=== PATIENT | female | born 1990 | race Caucasian/White ===

== ENCOUNTER 2017-03-31 18:50 | Emergency (ER) | payer OTHER ==
[~2017-03-31] VITALS: Ht 172.7 cm; Wt 87.7 kg
[~2017-03-31 18:50] MED LIST: VENTAER INH; ZITH250T PO
[2017-03-31 18:57] VITALS: BP 124/75; PULSE 88; RESP 20; TEMP 98.9; O2SAT 98
[2017-03-31] MEDS ORDERED: MORPHINE SULFATE 8 MG/ML INJ ONE (19:28)
[2017-03-31] MEDS ORDERED: MORPHINE SULFATE 4 MG/ML INJ IV PUSH ONE (19:30)
--- NOTE | 2017-03-31 19:33 | PD ---
HPI Chief Complaint: Fall Time Seen by Provider: 19:26 Travel History International Travel<30 days: No Contact w/Intl Traveler<30days: No Traveled to known affect area: No History of Present Illness HPI 26 year-old female presents to the emergency room for evaluation of right flank pain after falling down half a flight of stairs 1.5 hours prior to arrival. Patient was walking up the stairs with a laundry basket in her hand when she slipped and fell backwards. She struck her right flank on a step and then slid to the bottom of the stairs before striking her head on the tile floor. She denies loss of consciousness but "saw stars." Patient states her right flank pain is the most severe and worse with sitting and touching the area. Feels the best when she is standing. She has mild posterior headache. She has been ambulatory since falling. Took Aleve at home without significant relief in symptoms. Patient is not on blood thinners. Denies nausea, vomiting, upper or lower extremity paresthesias, saddle anesthesia, or loss of bowel or bladder control. [facility] Past Medical History Anxiety: Yes Depression: Yes Diabetes: No Diminished Hearing: No Immunizations Current: Yes ?: Not Menopausal: No : 2 Para: 1 : 1 Past Surgical History Section: Yes (2013) Social History Alcohol Use: No Tobacco Use: No Substance Use: No Allergies-Medications (Allergen,Severity, Reaction): Coded Allergies: Tramadol (Verified Allergy, Severe, Hives, 03/31/17) Reported Meds & Prescriptions Reported Meds & Active Scripts Active No Active Prescriptions or Reported Medications Review of Systems Except as stated in HPI: all other systems reviewed are Neg Physical Exam Narrative GENERAL: Well-developed, well-nourished female in no acute distress. Afebrile. Ambulatory. SKIN: Warm and dry. There is moderate erythema and developing ecchymosis in the right flank. HEAD: Atraumatic. Normocephalic. No kwon sign or raccoon eyes. EYES: PERRL, EOMI, no discharge or injection. No scleral icterus. ENT: Mucosa pink and moist. No erythema or exudates. No uvular edema. No uvular , palatal, or tonsillar deviation. Airway patent. EARS: Bilateral pinnae and external canals appear within normal limits. Bilateral tympanic membranes without erythema, dullness or perforation. No hemotympanum. NECK: Trachea midline. No JVD. No midline tenderness. Full range of motion. CARDIOVASCULAR: Regular rate and rhythm. No murmur appreciated. RESPIRATORY: No accessory muscle use. Clear to auscultation. Breath sounds equal bilaterally. No crackles, rales, wheezes, or rhonchi. BACK: No rash. No point tenderness on palpation of the spine. Extreme right- sided flank tenderness to palpation. NEUROLOGICAL: Awake and alert. Cranial nerves 2 through 12 intact. Motor grossly within normal limits. Normal speech. Strength 5/5 and equal in upper and lower extremities. PSYCHIATRIC: Appropriate mood and affect; insight and judgment normal. Data Data Last Documented VS Vital Signs Date Time Temp Pulse Resp B/P Pulse Ox O2 Delivery O2 Flow Rate FiO2 03/31/17 18:57 98.9 88 20 124/75 98 Orders Complete Blood Count With Diff (03/31/17 19:13) Basic Metabolic Panel (Bmp) (03/31/17 19:13) Ct Abd/Pel W Iv Contrast(Rout) (03/31/17 ) Iv Access Insert/Monitor (03/31/17 19:13) Ct Brain W/O Iv Contrast(Rout) (03/31/17 ) Morphine Inj (Morphine Inj) (03/31/17 19:30) Morphine Inj (Morphine Inj) (03/31/17 19:28) Morphine Inj (Morphine Inj) (03/31/17 20:00) Iohexol 350 Inj (Omnipaque 350 Inj) (03/31/17 20:36) Labs Laboratory Tests Test 03/31/17 19:20 White Blood Count 6.5 TH/MM3 Red Blood Count 4.35 MIL/MM3 Hemoglobin 12.6 GM/DL Hematocrit 37.0 % Mean Corpuscular Volume 85.1 FL Mean Corpuscular Hemoglobin 28.9 PG Mean Corpuscular Hemoglobin 34.0 % Concent Red Cell Distribution Width 11.6 % Platelet Count 296 TH/MM3 Mean Platelet Volume 7.8 FL Neutrophils (%) (Auto) 61.4 % Lymphocytes (%) (Auto) 28.5 % Monocytes (%) (Auto) 7.2 % Eosinophils (%) (Auto) 2.1 % Basophils (%) (Auto) 0.8 % Neutrophils # (Auto) 4.0 TH/MM3 Lymphocytes # (Auto) 1.8 TH/MM3 Monocytes # (Auto) 0.5 TH/MM3 Eosinophils # (Auto) 0.1 TH/MM3 Basophils # (Auto) 0.1 TH/MM3 CBC Comment DIFF FINAL Differential Comment Sodium Level 142 MEQ/L Potassium Level 3.9 MEQ/L Chloride Level 109 MEQ/L Carbon Dioxide Level 23.5 MEQ/L Anion Gap 10 MEQ/L Blood Urea Nitrogen 10 MG/DL Creatinine 0.81 MG/DL Estimat Glomerular Filtration 85 ML/MIN Rate Random Glucose 93 MG/DL Calcium Level 8.9 MG/DL MDM Medical Decision Making Medical Screen Exam Complete: Yes Emergency Medical Condition: Yes Medical Record Reviewed: Yes Differential Diagnosis Kidney injury, contusion, ecchymosis, fracture, strain, sprained Narrative Course 26-year-old female presents to the emergency room for evaluation of right mid back/flank pain after falling down half a flight of stairs prior to arrival. Patient hit her right flank on the stair before sliding to the bottom and striking her head on tile. She denies loss of consciousness, photophobia, nausea, vomiting. No focal neurological deficits. She reports mild to moderate posterior headache and severe back pain. She was given morphine for pain. Physical exam reveals moderate erythema/developing ecchymosis over the right flank. It is extremely tender to palpation. Mild midline tenderness. She is ambulatory. Patient urinated while in the emergency room and was found to have no gross hematuria. Vital signs stable. Given blunt trauma to the kidney, CT of the abdomen/pelvis with IV contrast was ordered to evaluate for kidney contusion. CT is unremarkable for kidney or bony etiology of pain. Patient was reassured and told her injury is likely due to soft tissue contusion. Told to follow up with a primary care physician or return to the emergency room for worsening symptoms. She understands and agrees to plan. Diagnosis Primary Impression: Contusion of right side of back Qualified Code: S20.221A - Contusion of right side of back, initial encounter Referrals: Primary Care Physician Patient Instructions: Contusion in Adults (ED), General Instructions Additional Instructions: Rest and drink plenty of fluids. Take ibuprofen with food as directed, as needed for pain. Apply ice to the affected area for 20 minutes at a time, as needed for pain and swelling. Follow-up with a primary care physician. Return to the emergency room for worsening symptoms. Scripts No Active Prescriptions or Reported Meds Disposition: 01 DISCHARGE HOME Condition: Stable Nusrat Ulloa Mar 31, 2017 19:33
[2017-03-31 19:43] LABS: POTASSIUM 3.9 MEQ/L (3.5-5.1)
[2017-03-31 19:45] LABS: BASOPHIL # 0.1 TH/MM3 (0-0.2); BASOPHIL % 0.8 % (0.0-2.0); EOSINOPHIL # 0.1 TH/MM3 (0-0.4); EOSINOPHIL % 2.1 % (0.0-4.0); HEMO FLAGS DIFF FINAL; LYMPH % 28.5 % (9.0-44.0); LYMPHOCYTE # 1.8 TH/MM3 (1.0-4.8); MEAN CELL VOLUME 85.1 FL (80.0-100.0); MEAN CORPUSCULAR HEMOGLOBIN 28.9 PG (27.0-34.0); MONO % 7.2 % (0.0-8.0); NEUT % 61.4 % (16.0-70.0); PLATELET COUNT 296 TH/MM3 (150-450); RED BLOOD COUNT 4.35 MIL/MM3 (4.00-5.30); RED CELL DISTRIBUTION WIDTH 11.6 % (11.6-17.2); WHITE BLOOD COUNT 6.5 TH/MM3 (4.0-11.0)
[2017-03-31 19:46] LABS: BICARBONATE 23.5 MEQ/L (21.0-32.0)
[2017-03-31] MEDS ORDERED: MORPHINE SULFATE 8 MG/ML INJ IV PUSH ONE (20:00)
--- NOTE | 2017-03-31 20:35 | RADRPT ---
EXAM DATE/TIME: 03/31/2017 20:08 [facility] COMPARISON: No previous studies available for comparison. INDICATIONS : Trauma. Cephalgia post fall. RADIATION DOSE: 59.20 CTDIvol (mGy) MEDICAL HISTORY : None SURGICAL HISTORY : None. ENCOUNTER: Initial ACUITY: 1 day PAIN SCALE: 5/10 LOCATION: Bilateral occipital TECHNIQUE: Multiple contiguous axial images were obtained of the head. Using automated exposure control and adj ustment of the mA and/or kV according to patient size, radiation dose was kept as low as reasonably a chievable to obtain optimal diagnostic quality images. DICOM format image data is available electro nically for review and comparison. FINDINGS: CEREBRUM: The ventricles are normal for age. No evidence of midline shift, mass lesion, hemorrhage or acute in farction. 1 mm calcification left centrum semiovale No extra-axial fluid collections are seen. POSTERIOR FOSSA: The cerebellum and brainstem are intact. The 4th ventricle is midline. The cerebellopontine angle i s unremarkable. EXTRACRANIAL: The visualized portion of the orbits is intact. SKULL: The calvaria is intact. No evidence of skull fracture. CONCLUSION: Negative for acute process. Delvis Mahajan MD FACR on March 31, 2017 at 20:32 Board Certified Radiologist. This report was verified electronically.
[2017-03-31] MEDS ORDERED: IOHEXOL 350 MG/ML 10 ML VIAL (for RAD DIAG) IV ONE (20:36)
--- NOTE | 2017-03-31 20:55 | RADRPT ---
EXAM DATE/TIME: 03/31/2017 20:13 [facility] COMPARISON: CT ABDOMEN & PELVIS W CONTRAST, April 26, 2011, 16:39. INDICATIONS : Right flank and lower back pain post fall. IV CONTRAST: 100 cc Omnipaque 350 (iohexol) IV ORAL CONTRAST: No oral contrast ingested. RADIATION DOSE: 16.54 CTDIvol (mGy) MEDICAL HISTORY : None SURGICAL HISTORY : section. ENCOUNTER: Initial ACUITY: 1 day PAIN SCALE: 8/10 LOCATION: Right flank TECHNIQUE: Volumetric scanning of the abdomen and pelvis was performed. Using automated exposure control and ad justment of the mA and/or kV according to patient size, radiation dose was kept as low as reasonably achievable to obtain optimal diagnostic quality images. DICOM format image data is available electro nically for review and comparison. FINDINGS: LOWER LUNGS: The visualized lower lungs are clear. LIVER: Homogeneous density without lesion. There is no dilation of the biliary tree. SPLEEN: Normal size without lesion. PANCREAS: Normal without calcifications. ADRENAL GLANDS: Within normal limits.. KIDNEYS: Normal in size and shape. There is no mass, stone or hydronephrosis. CECUM: There are no inflammatory changes BOWEL/MESENTERY: The stomach, small bowel, and colon demonstrate no acute abnormality. There is no free intraperitone al air or fluid. ABDOMINAL WALL: Within normal limits. RETROPERITONEUM: There is no lymphadenopathy. PELVIS: There is no adnexal mass or inflammatory changes.. Small adnexal cysts are noted. INGUINAL: There is no lymphadenopathy or hernia. MUSCULOSKELETAL: Within normal limits for patient age. CONCLUSION: Negative. I do not see etiology for the right flank pain. There is no fracture. Delvis Mahajan MD FACR on March 31, 2017 at 20:46 Board Certified Radiologist. This report was verified electronically.
[2017-03-31 21:15] VITALS: BP 138/91; PULSE 67; RESP 20; TEMP 98.6; O2SAT 99
== END 2017-03-31 21:21 | disposition home or self-care (01) ==
LOC: PHEFT 18:50
DX: S20.221A Contusion of right back wall of thorax, initial encounter (principal); R51 Headache; Z86.59 Personal history of other mental and behavioral disorders; W10.9XXA Fall (on) (from) unspecified stairs and steps, initial encounter
CPT/HCPCS: 70450; 74177; 80048; 85025; 96374; 99285; J2270; Q9967

== ENCOUNTER 2017-04-11 00:24 | Emergency (ER) | payer OTHER ==
[~2017-04-11] VITALS: Ht 172.7 cm; Wt 88.7 kg
[2017-04-11 00:29] VITALS: BP 126/84; PULSE 117; RESP 20; TEMP 98.3; O2SAT 98
== END 2017-04-11 01:08 | disposition left against medical advice (07) ==
LOC: PHED 00:24
DX: T14.90 Injury, unspecified (principal); Y09 Assault by unspecified means
CPT/HCPCS: 99281

== ENCOUNTER 2017-10-29 15:54 | Emergency (ER) | payer OTHER ==
[~2017-10-29] VITALS: Ht 172.7 cm; Wt 80.0 kg
[2017-10-29 15:58] VITALS: BP 175/74; PULSE 97; RESP 16; TEMP 98; O2SAT 98
[2017-10-29 16:14] LABS: BILIRUBIN, URINE NEG (NEG); BLOOD, URINE NEG (NEG); GLUCOSE,URINE NEG (NEG); KETONE, URINE NEG (NEG); NITRITE,URINE NEG (NEG); URINE LEUKOCYTE ESTERASE NEG (NEG)
[2017-10-29 16:28] LABS: AMORPHOUS SEDIMENT, URINE MOD; URINE COLOR YELLOW (YELLW/STRAW)
--- NOTE | 2017-10-29 16:49 | PD ---
HPI Chief Complaint: [employer] Worker Problem/Complaint Time Seen by Provider: 16:38 Travel History International Travel<30 days: No Contact w/Intl Traveler<30days: No Traveled to known affect area: No History of Present Illness HPI The patient was seen and examined in the presence of the nurse. This patient complains of abdominal pain. Location is left lower quadrant. Severity is moderate. Duration is 4 days. She's had a lot of diarrhea over that timeframe. 4-6 episodes per day. She has nausea but no vomiting. No right sided pain. Denies chance of or pelvic infection. No vaginal discharge. No ill contacts. No alleviating factors. No exacerbating factors. Not having fever. PFSH Past Medical History Anxiety: Yes Depression: Yes Diabetes: No Diminished Hearing: No Immunizations Current: Yes Menopausal: No : 2 Para: 1 : 1 Past Surgical History Section: Yes (2013) Social History Alcohol Use: No Tobacco Use: No Substance Use: Yes (MARIJUANA) Allergies-Medications (Allergen,Severity, Reaction): Coded Allergies: tramadol (Unverified Allergy, Severe, Hives, 05/06/17) Reported Meds & Prescriptions Reported Meds & Active Scripts Active Zofran (Ondansetron HCl) 4 Mg Tab 4 Mg PO Q6HR PRN Tylenol-Codeine #3 (Acetaminophen-Codeine) 300-30 mg Tab 1 Tab PO Q6H PRN Review of Systems General / Constitutional: No: Fever Eyes: No: Visual changes HENT: No: Headaches Cardiovascular: No: Chest Pain or Discomfort Respiratory: No: Shortness of Breath Gastrointestinal: Positive: Nausea, Diarrhea, Abdominal Pain Genitourinary: No: Dysuria Musculoskeletal: No: Pain Skin: No Rash Neurologic: No: Weakness Psychiatric: No: Depression Endocrine: No: Polydipsia Hematologic/Lymphatic: No: Easy Bruising Physical Exam Narrative GENERAL: Well-nourished, well-developed patient with abdominal pain . SKIN: Focused skin assessment reveals no rash and nodules. Skin is Warm and dry. HEAD: Atraumatic. Normocephalic. EYES: Pupils equal and round. No scleral icterus. No injection or drainage. ENT: No nasal bleeding or discharge. Mucous membranes pink and moist. NECK: Trachea midline. No JVD. CARDIOVASCULAR: Regular rate and rhythm. No murmur appreciated. RESPIRATORY: No accessory muscle use. Clear to auscultation. Breath sounds equal bilaterally. GASTROINTESTINAL: Abdomen soft, left lower quadrant tenderness without rebound or guarding, nondistended. Hepatic and splenic margins not palpable. MUSCULOSKELETAL: No obvious deformities. No clubbing. No cyanosis. No edema. NEUROLOGICAL: Awake and alert. No obvious cranial nerve deficits. Motor grossly within normal limits. Normal speech. PSYCHIATRIC: Appropriate mood and affect; insight and judgment normal. Data Data Last Documented VS Vital Signs Date Time Temp Pulse Resp B/P (MAP) Pulse Ox O2 Delivery O2 Flow Rate FiO2 10/29/17 18:43 18 10/29/17 15:58 98.0 97 175/74 (107) 98 Orders Orders Urinalysis - C+S If Indicated (10/29/17 16:01) Ed Urine Pregnancytest Poc (10/29/17 16:01) Iv Access Insert/Monitor (10/29/17 16:46) Electrocardiogram (10/29/17 ) Complete Blood Count With Diff (10/29/17 16:46) Basic Metabolic Panel (Bmp) (10/29/17 16:46) Ondansetron Inj (Zofran Inj) (10/29/17 17:00) Sodium Chlor 0.9% 1000 Ml Inj (Ns 1000 M (10/29/17 17:00) Morphine Inj (Morphine Inj) (10/29/17 17:15) Ct Abd/Pel W Iv Contrast(Rout) (10/29/17 ) Iohexol 350 Inj (Omnipaque 350 Inj) (10/29/17 18:24) Labs Laboratory Tests Test 10/29/17 16:00 10/29/17 17:00 Urine Collection Type CLEAN CATCH Urine Color YELLOW Urine Turbidity CLEAR Urine pH 6.0 Urine Specific [place] 1.020 Urine Protein NEG mg/dL Urine Glucose (UA) NEG mg/dL Urine Ketones NEG mg/dL Urine Occult Blood NEG Urine Nitrite NEG Urine Bilirubin NEG Urine Leukocyte Esterase NEG Urine Squamous Epithelial Cells 6-8 /hpf Urine Amorphous Sediment MOD Microscopic Urinalysis Comment CULT NOT INDICATED White Blood Count 5.8 TH/MM3 Red Blood Count 4.59 MIL/MM3 Hemoglobin 12.2 GM/DL Hematocrit 37.6 % Mean Corpuscular Volume 81.9 FL Mean Corpuscular Hemoglobin 26.5 PG Mean Corpuscular Hemoglobin Concent 32.4 % Red Cell Distribution Width 13.1 % Platelet Count 266 TH/MM3 Mean Platelet Volume 7.5 FL Neutrophils (%) (Auto) 56.9 % Lymphocytes (%) (Auto) 32.4 % Monocytes (%) (Auto) 7.9 % Eosinophils (%) (Auto) 2.1 % Basophils (%) (Auto) 0.7 % Neutrophils # (Auto) 3.3 TH/MM3 Lymphocytes # (Auto) 1.9 TH/MM3 Monocytes # (Auto) 0.5 TH/MM3 Eosinophils # (Auto) 0.1 TH/MM3 Basophils # (Auto) 0.0 TH/MM3 CBC Comment DIFF FINAL Differential Comment Blood Urea Nitrogen 6 MG/DL Creatinine 0.78 MG/DL Random Glucose 92 MG/DL Calcium Level 8.6 MG/DL Sodium Level 137 MEQ/L Potassium Level 3.6 MEQ/L Chloride Level 104 MEQ/L Carbon Dioxide Level 27.7 MEQ/L Anion Gap 5 MEQ/L Estimat Glomerular Filtration Rate 89 ML/MIN MDM Medical Decision Making Medical Screen Exam Complete: Yes Emergency Medical Condition: Yes Medical Record Reviewed: Yes Differential Diagnosis Colitis, gastroenteritis, food poisoning Narrative Course I have reviewed the patient's electronic medical record. Urinalysis normal Urine negative IV placed and I gave her a liter of saline IV and IV Zofran CBC is normal Metabolic profile is normal of Note the patient also complained of some palpitations. I reviewed her EKG which is normal On recheck at 1740 he is still having pain I gave her dose of morphine for symptom relief With nurse present I did a speculum exam which revealed no evidence of PID or bleeding or discharge. She does have vague left sided adnexal area tenderness I do not have clinical suspicion of torsion I've ordered CT of abdomen and pelvis. Results are back and there is nothing emergent there. I reevaluated her and she is clinically looking well Some medicine for nausea and pain for symptom relief and recommended primary care follow-up She seems to have a mild colitis or gastroenteritis Diagnosis Primary Impression: Abdominal pain Qualified Codes: R10.32 - Left lower quadrant pain Additional Impression: Diarrhea Qualified Codes: R19.7 - Diarrhea, unspecified Additional Instructions: The patient was advised to follow up with their physician and return if they worsen. The patient was warned about potential sedation for the medications they will receive on prescription. Med/Other Pt SpecificInfo: Prescription(s) given Scripts Ondansetron (Zofran) 4 Mg Tab 4 MG PO Q6HR Y for NAUSEA OR VOMITING, #12 TAB 0 Refills Prov: Nash Rodas MD 10/29/17 Acetaminophen-Codeine (Tylenol-Codeine #3) 300-30 mg Tab 1 TAB PO Q6H Y for PAIN, #15 TAB 0 Refills Prov: Nash Rodas MD 10/29/17 Disposition: 01 DISCHARGE HOME Condition: Stable Nash Rodas MD Oct 29, 2017 16:49
[2017-10-29] MEDS ORDERED: SODIUM CHLOR 0.9% 1000 ML INJ 1,000 ML IV ONE (17:00)
[2017-10-29] MEDS ORDERED: ONDANSETRON HCL 4 MG/2 ML VIAL IVP ONE (17:00)
[2017-10-29 17:11] LABS: AUTOMATED NEUTROPHIL # 3.3 TH/MM3 (1.8-7.7); BASOPHIL % 0.7 % (0.0-2.0); EOSINOPHIL # 0.1 TH/MM3 (0-0.4); EOSINOPHIL % 2.1 % (0.0-4.0); HEMATOCRIT 37.6 % (35.0-46.0); HEMOGLOBIN 12.2 GM/DL (11.6-15.3); LYMPH % 32.4 % (9.0-44.0); LYMPHOCYTE # 1.9 TH/MM3 (1.0-4.8); MEAN CELL VOLUME 81.9 FL (80.0-100.0); MEAN CORPUSCULAR HEMOGLOBIN 26.5 PG (27.0-34.0); MEAN CORPUSCULAR HGB CONC 32.4 % (32.0-36.0); MEAN PLATELET VOLUME 7.5 FL (7.0-11.0); MONO % 7.9 % (0.0-8.0); MONOCYTE # 0.5 TH/MM3 (0-0.9); NEUT % 56.9 % (16.0-70.0); PLATELET COUNT 266 TH/MM3 (150-450); RED BLOOD COUNT 4.59 MIL/MM3 (4.00-5.30); RED CELL DISTRIBUTION WIDTH 13.1 % (11.6-17.2); WHITE BLOOD COUNT 5.8 TH/MM3 (4.0-11.0)
[2017-10-29] MEDS ORDERED: MORPHINE SULFATE 4 MG/ML INJ IV PUSH ONE (17:15)
[2017-10-29 17:23] LABS: BICARBONATE 27.7 MEQ/L (21.0-32.0); CALCIUM 8.6 MG/DL (8.5-10.1)
[2017-10-29 17:27] LABS: CREATININE 0.78 MG/DL (0.50-1.00)
[2017-10-29] MEDS ORDERED: IOHEXOL 350 MG/ML 10 ML VIAL (for RAD DIAG) IVCONTRAST ONE (18:24)
--- NOTE | 2017-10-29 18:34 | RADRPT ---
EXAM DATE/TIME: 10/29/2017 18:20 [facility] COMPARISON: CT ABDOMEN & PELVIS W CONTRAST, March 31, 2017, 20:13. INDICATIONS : Left sided abdominal pain. IV CONTRAST: 100 cc Omnipaque 350 (iohexol) IV ORAL CONTRAST: No oral contrast ingested. RADIATION DOSE: 11.26 CTDIvol (mGy) MEDICAL HISTORY : None SURGICAL HISTORY : section. ENCOUNTER: Initial ACUITY: 3 days PAIN SCALE: 7/10 LOCATION: Left abdomen TECHNIQUE: Volumetric scanning of the abdomen and pelvis was performed. Using automated exposure control and ad justment of the mA and/or kV according to patient size, radiation dose was kept as low as reasonably achievable to obtain optimal diagnostic quality images. DICOM format image data is available electro nically for review and comparison. FINDINGS: LOWER LUNGS: The visualized lower lungs are clear. LIVER: Homogeneous density without lesion. There is no dilation of the biliary tree. No calcified gallston es. SPLEEN: Normal size without lesion. PANCREAS: Within normal limits. KIDNEYS: Normal in size and shape. There is no mass, stone or hydronephrosis. ADRENAL GLANDS: Within normal limits. VASCULAR: There is no aortic aneurysm. BOWEL/MESENTERY: The stomach, small bowel, and colon demonstrate no acute abnormality. There is no free intraperitone al air or fluid. The appendix is unremarkable. No inflammatory changes are seen. There is stool throu ghout the colon. ABDOMINAL WALL: Within normal limits. RETROPERITONEUM: There is no lymphadenopathy. BLADDER: No wall thickening or mass. REPRODUCTIVE: Within normal limits. INGUINAL: There is no lymphadenopathy or hernia. MUSCULOSKELETAL: Within normal limits for patient age. Compared to the prior exam of 03/31/2017, no new or significant changes. CONCLUSION: 1. Unremarkable and stable CT scan of the abdomen and pelvis compared to the prior study. 2. No acute pathology. Tanvir Francois MD on October 29, 2017 at 18:29 Board Certified Radiologist. This report was verified electronically.
[2017-10-29] MEDS ORDERED: TYLETAB34 PO (19:15)
[2017-10-29] MEDS ORDERED: ZOFR4TAB PO (19:15)
[2017-10-29 19:17] VITALS: BP 119/75; PULSE 71; RESP 16; TEMP 97.9; O2SAT 99
--- NOTE | 2017-10-31 09:45 | EKG ---
Date Performed: 10/29/2017 Time Performed: 17:14:39 PTAGE: 27 years EKG: Sinus rhythm NORMAL ECG Compared to PREVIOUS TRACING , the sinus rate is slower. PREVIOUS TRACIN04/15/2013 11.01 DOCTOR: Ten [place] Interpretating Date/Time 10/31/2017 09:44:54
== END 2017-10-29 19:33 | disposition home or self-care (01) ==
LOC: PHED 15:54
DX: R10.32 Left lower quadrant pain (principal); R19.7 Diarrhea, unspecified; R00.2 Palpitations; F41.9 Anxiety disorder, unspecified; F32.9 Major depressive disorder, single episode, unspecified; Z88.8 Allergy status to other drugs, medicaments and biological substances
CPT/HCPCS: 74177; 80048; 81001; 84703; 85025; 93005; 96361; 96374; 96375; 99285; J2270; J2405; J7030; Q9967

== ENCOUNTER 2017-12-07 11:14 | Emergency (ER) | payer SELFPAY ==
[~2017-12-07 11:14] MED LIST changes: +TYLETAB34 PO; -VENTAER INH; -ZITH250T PO; +ZOFR4TAB PO
== END 2017-12-07 11:49 | disposition left against medical advice (07) ==
LOC: PHED 11:14
DX: Z76.89 Persons encountering health services in other specified circumstances (principal)
CPT/HCPCS: 99281

== ENCOUNTER 2018-01-19 11:29 | Emergency (ER) | payer OTHER ==
[~2018-01-19] VITALS: Ht 172.7 cm; Wt 77.0 kg
[2018-01-19] MEDS ORDERED: SODIUM CHLOR 0.9% 1000 ML INJ 1,000 ML IV SCH (11:44)
[2018-01-19 11:45] VITALS: BP 99/55; PULSE 74; RESP 19; TEMP 98.5; O2SAT 100
[2018-01-19] MEDS ORDERED: SODIUM CHLORIDE 0.9% FLUSH 10 ML FLUSH IV FLUSH PRN (11:45)
[2018-01-19] MEDS ORDERED: ONDANSETRON HCL 4 MG/2 ML VIAL IM ONE (11:45)
--- NOTE | 2018-01-19 11:53 | PD ---
HPI Chief Complaint: Withdrawal symptoms Time Seen by Provider: 11:38 Travel History International Travel<30 days: No Contact w/Intl Traveler<30days: No History of Present Illness HPI Patient comes emergency department complaining of withdrawing from IV Dilaudid. Patient reports she last used yesterday taking approximately 2 mg IV. Patient reports prior that she used the day before taking 4-5 8 mg pills IV. Patient states that she started withdrawing yesterday feeling nauseous which is why she used yesterday take with a "sickness feeling" away. Patient reports around 230 this morning she began having generalized body aches, nausea, vomiting, and diarrhea. Patient reports anytime she tries to eat or drink anything makes her symptoms worse. Patient says she is trying to get clean on her own but is unable to deal with the GI symptoms. Denies , chest pain, shortness of breath, or fevers. Denies any blood in vomit or stool. Reports vomiting is nonbilious. She reports 3 episodes of vomiting and 2 episodes of diarrhea today. Reports she has been more dry heaving than anything she is not able to eat or drink anything. Severity mild. PFSH Past Medical History Anemia: Yes Anxiety: Yes Depression: Yes Diabetes: No Diminished Hearing: No Immunizations Current: Yes Menopausal: No : 2 Para: 1 : 1 Past Surgical History Section: Yes (2013) Social History Alcohol Use: Yes (occass) Tobacco Use: Yes (e cig- 1/2 ppd) Substance Use: Yes (MARIJUANA) Allergies-Medications (Allergen,Severity, Reaction): Coded Allergies: tramadol (Unverified Allergy, Severe, Hives, 05/06/17) Reported Meds & Prescriptions Reported Meds & Active Scripts Active Zofran (Ondansetron HCl) 4 Mg Tab 4 Mg PO Q6HR PRN Tylenol-Codeine #3 (Acetaminophen-Codeine) 300-30 mg Tab 1 Tab PO Q6H PRN Review of Systems Except as stated in HPI: all other systems reviewed are Neg Physical Exam Narrative GENERAL: Well-developed, well nourished, in no acute distress, and non-ill appearing. SKIN: Focused skin assessment warm and dry. HEAD: Atraumatic. Normocephalic. EYES: Pupils equal and round. EOMI. No scleral icterus. No injection or drainage. ENT: No nasal bleeding or discharge. Mucous membranes pink and moist. NECK: Trachea midline. Supple. No nuclear rigidity. CARDIOVASCULAR: Regular rate and rhythm. No murmur appreciated. RESPIRATORY: No accessory muscle use. No respiratory distress. Clear to auscultation. Breath sounds equal bilaterally. GASTROINTESTINAL: Abdomen soft, non-tender, nondistended, and no guarding. Hepatic and splenic margins not palpable. Normal bowel sounds x4. No pulsatile mass. MUSCULOSKELETAL: No obvious deformities. No clubbing. No cyanosis. No edema. Full range of motion. NEUROLOGICAL: Awake and alert. No obvious cranial nerve deficits. Motor grossly within normal limits. Normal speech. PSYCHIATRIC: Appropriate mood and affect; insight and judgment normal. Data Data Last Documented VS Vital Signs Date Time Temp Pulse Resp B/P (MAP) Pulse Ox O2 Delivery O2 Flow Rate FiO2 01/19/18 11:45 98.5 74 19 99/55 (70) 100 Orders Orders Complete Blood Count With Diff (01/19/18 11:44) Comprehensive Metabolic Panel (01/19/18 11:44) Lipase (01/19/18 11:44) Urinalysis - C+S If Indicated (01/19/18 11:44) Iv Access Insert/Monitor (01/19/18 11:44) Ecg Monitoring (01/19/18 11:44) Oximetry (01/19/18 11:44) Sodium Chlor 0.9% 1000 Ml Inj (Ns 1000 M (01/19/18 11:44) Sodium Chloride 0.9% Flush (Ns Flush) (01/19/18 11:45) Electrocardiogram (01/19/18 11:44) Chest, Single Ap (01/19/18 11:44) Ondansetron Inj (Zofran Inj) (01/19/18 11:45) Ed Urine Pregnancytest Poc (01/19/18 11:44) Drug Screen, Random Urine (01/19/18 12:02) Alcohol (Ethanol) (01/19/18 12:02) Salicylates (Aspirin) (01/19/18 12:02) Tylenol (Acetaminophen) (01/19/18 12:02) Ondansetron Inj (Zofran Inj) (01/19/18 12:15) Labs Laboratory Tests Test 01/19/18 12:00 4/30/18 12:20 White Blood Count 9.1 TH/MM3 Red Blood Count 5.08 MIL/MM3 Hemoglobin 13.8 GM/DL Hematocrit 41.4 % Mean Corpuscular Volume 81.6 FL Mean Corpuscular Hemoglobin 27.3 PG Mean Corpuscular Hemoglobin Concent 33.4 % Red Cell Distribution Width 13.5 % Platelet Count 302 TH/MM3 Mean Platelet Volume 7.9 FL Neutrophils (%) (Auto) 78.5 % Lymphocytes (%) (Auto) 14.6 % Monocytes (%) (Auto) 6.1 % Eosinophils (%) (Auto) 0.5 % Basophils (%) (Auto) 0.3 % Neutrophils # (Auto) 7.1 TH/MM3 Lymphocytes # (Auto) 1.3 TH/MM3 Monocytes # (Auto) 0.5 TH/MM3 Eosinophils # (Auto) 0.0 TH/MM3 Basophils # (Auto) 0.0 TH/MM3 CBC Comment DIFF FINAL Differential Comment Urine Color YELLOW Urine Turbidity CLEAR Urine pH 8.0 Urine Specific [place] 1.008 Urine Protein NEG mg/dL Urine Glucose (UA) NEG mg/dL Urine Ketones NEG mg/dL Urine Occult Blood NEG Urine Nitrite NEG Urine Bilirubin NEG Urine Urobilinogen LESS THAN 2.0 MG/DL Urine Leukocyte Esterase NEG Urine RBC 1 /hpf Urine WBC 1 /hpf Urine Squamous Epithelial Cells 3 /hpf Urine Bacteria RARE /hpf Microscopic Urinalysis Comment CULT NOT INDICATED Blood Urea Nitrogen 5 MG/DL Creatinine 0.78 MG/DL Random Glucose 80 MG/DL Total Protein 8.8 GM/DL Albumin 4.4 GM/DL Calcium Level 9.6 MG/DL Alkaline Phosphatase 60 U/L Aspartate Amino Transf (AST/SGOT) 26 U/L Alanine Aminotransferase (ALT/SGPT) 33 U/L Total Bilirubin 0.6 MG/DL Sodium Level 143 MEQ/L Potassium Level 4.2 MEQ/L Chloride Level 109 MEQ/L Carbon Dioxide Level 25.9 MEQ/L Anion Gap 8 MEQ/L Estimat Glomerular Filtration Rate 89 ML/MIN Lipase 159 U/L Salicylates Level 4.4 MG/DL Acetaminophen Level LESS THAN 2.0 MCG/ML Ethyl Alcohol Level LESS THAN 3 MG/DL [facility] Medical Decision Making Medical Screen Exam Complete: Yes Emergency Medical Condition: Yes Interpretation(s) EKG reviewed by Dr. iRvera showed normal sinus rhythm with ventricular rate of 67. No STEMI. Differential Diagnosis Opioid withdrawal, IV drug abuse, metabolic disturbance, dehydration, UTI Narrative Course Patient seen and examined. IV was established patient was on cardiac monitoring. Patient was given IV Zofran IV fluid. Patient reports improvement of symptoms. Patient form she would have to follow up with [facility] or other rehab facility for detox. Patient informed should be given a prescription for Zofran and Bentyl to help with her symptoms once all her lab work comes back. Patient decided to leave AMA as she was feeling better and was found that she would not be receiving anything like Suboxone to help with her withdrawal symptoms. I discussed the risks of leaving against medical advice without further evaluation treatment with the patient. These risks include cardiac dysfunction, cardiac dysrhythmia, possible heart attack, possible stroke or . The patient indicated understanding of these risks and appeared to have the capacity to make this decision. Patient ambulated out of the emergency department AGAINST MEDICAL ADVICE. Diagnosis Primary Impression: Left against medical advice Disposition: 07 AGAINST MEDICAL ADVICE Condition: Stable Michael Corona Jan 19, 2018 11:52
[2018-01-19] MEDS ORDERED: ONDANSETRON HCL 4 MG/2 ML VIAL IV PUSH ONE (12:15)
[2018-01-19 12:22] LABS: AUTOMATED NEUTROPHIL # 7.1 TH/MM3 (1.8-7.7); BASOPHIL % 0.3 % (0.0-2.0); EOSINOPHIL % 0.5 % (0.0-4.0); HEMATOCRIT 41.4 % (35.0-46.0); HEMOGLOBIN 13.8 GM/DL (11.6-15.3); LYMPH % 14.6 % (9.0-44.0); LYMPHOCYTE # 1.3 TH/MM3 (1.0-4.8); MEAN CELL VOLUME 81.6 FL (80.0-100.0); MEAN CORPUSCULAR HEMOGLOBIN 27.3 PG (27.0-34.0); MEAN CORPUSCULAR HGB CONC 33.4 % (32.0-36.0); MEAN PLATELET VOLUME 7.9 FL (7.0-11.0); MONO % 6.1 % (0.0-8.0); MONOCYTE # 0.5 TH/MM3 (0-0.9); NEUT % 78.5 % (16.0-70.0); PLATELET COUNT 302 TH/MM3 (150-450); RED BLOOD COUNT 5.08 MIL/MM3 (4.00-5.30); RED CELL DISTRIBUTION WIDTH 13.5 % (11.6-17.2); WHITE BLOOD COUNT 9.1 TH/MM3 (4.0-11.0)
--- NOTE | 2018-01-19 12:23 | RADRPT ---
EXAM DATE/TIME: 01/19/2018 12:09 [place] COMPARISON: No previous studies available for comparison. INDICATIONS : Vomiting and shortness of breath. MEDICAL HISTORY : None. SURGICAL HISTORY : section. ENCOUNTER: Initial ACUITY: 1 day PAIN SCORE: 0/10 LOCATION: Bilateral chest FINDINGS: A single view of the chest demonstrates the lungs to be symmetrically aerated without evidence of mas s, infiltrate or effusion. The cardiomediastinal contours are unremarkable. Osseous structures are intact. CONCLUSION: No acute disease. Jhonathan Jacques MD on January 19, 2018 at 12:22 Board Certified Radiologist. This report was verified electronically.
[2018-01-19 12:28] LABS: BACTERIA, URINE RARE /hpf; BILIRUBIN, URINE NEG (NEG); BLOOD, URINE NEG (NEG); GLUCOSE,URINE NEG (NEG); KETONE, URINE NEG (NEG); NITRITE,URINE NEG (NEG); SQUAMOUS EPITHELIAL CELL URINE 3 /hpf (0-5); URINE COLOR YELLOW (YELLW/STRAW); URINE LEUKOCYTE ESTERASE NEG (NEG)
[2018-01-19 12:47] LABS: ALKALINE PHOSPHATASE 60 U/L (45-117); ALT (GPT) 33 U/L (10-53); TOTAL BILIRUBIN ADULT 0.6 MG/DL (0.2-1.0); TOTAL PROTEIN 8.8 GM/DL (6.4-8.2)
[2018-01-19 12:50] LABS: ALBUMIN 4.4 GM/DL (3.4-5.0); AST (GOT) 26 U/L (15-37); BICARBONATE 25.9 MEQ/L (21.0-32.0); BLOOD UREA NITROGEN 5 MG/DL (7-18); CALCIUM 9.6 MG/DL (8.5-10.1); CHLORIDE 109 MEQ/L (98-107); CREATININE 0.78 MG/DL (0.50-1.00); GLOMERULAR FILTRATION RATE 89 ML/MIN (>89); GLUCOSE,RANDOM 80 MG/DL (74-106); SODIUM (NA) 143 MEQ/L (136-145)
[2018-01-19 13:13] LABS: ACETAMINOPHEN LESS THAN 2.0 MCG/ML (10.0-30.0)
--- NOTE | 2018-01-19 17:43 | EKG ---
Date Performed: 01/19/2018 Time Performed: 12:03:10 PTAGE: 27 years EKG: Sinus rhythm NORMAL ECG No significant change from prior electrocardiogram. PREVIOUS TRACING : 10/29/2017 17.14 DOCTOR: Neo Aponte Interpretating Date/Time 01/19/2018 17:42:35
== END 2018-01-19 13:51 | disposition left against medical advice (07) ==
LOC: NEPC 11:29
DX: R11.2 Nausea with vomiting, unspecified (principal); R19.7 Diarrhea, unspecified; F12.90 Cannabis use, unspecified, uncomplicated; F17.200 Nicotine dependence, unspecified, uncomplicated; R06.02 Shortness of breath
CPT/HCPCS: 71045; 80053; 80307; 81001; 83690; 84703; 85025; 93005; 96361; 96374; 99285; J2405; J7030

== ENCOUNTER 2018-02-15 03:36 | Emergency (ER) | payer OTHER ==
[~2018-02-15] VITALS: Ht 172.7 cm; Wt 75.0 kg
[2018-02-15 03:48] VITALS: BP 128/90; PULSE 98; RESP 16; TEMP 97.7; O2SAT 99
[2018-02-15] MEDS ORDERED: clonazePAM 0.5 MG TAB PO ONE (04:15)
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
[2018-02-15 04:31] LABS: AUTOMATED NEUTROPHIL # 2.2 TH/MM3 (1.8-7.7); BASOPHIL % 0.5 % (0.0-2.0); EOSINOPHIL # 0.1 TH/MM3 (0-0.4); EOSINOPHIL % 2.6 % (0.0-4.0); HEMOGLOBIN 12.9 GM/DL (11.6-15.3); LYMPH % 47.7 % (9.0-44.0); LYMPHOCYTE # 2.7 TH/MM3 (1.0-4.8); MEAN CELL VOLUME 80.8 FL (80.0-100.0); MEAN CORPUSCULAR HEMOGLOBIN 27.4 PG (27.0-34.0); MEAN CORPUSCULAR HGB CONC 33.9 % (32.0-36.0); MONOCYTE # 0.6 TH/MM3 (0-0.9); NEUT % 38.2 % (16.0-70.0); PLATELET COUNT 291 TH/MM3 (150-450); RED BLOOD COUNT 4.71 MIL/MM3 (4.00-5.30); RED CELL DISTRIBUTION WIDTH 14.2 % (11.6-17.2); WHITE BLOOD COUNT 5.7 TH/MM3 (4.0-11.0)
[2018-02-15 04:41] LABS: ALBUMIN 4.3 GM/DL (3.4-5.0); ALT (GPT) 51 U/L (10-53); AST (GOT) 39 U/L (15-37); BLOOD UREA NITROGEN 5 MG/DL (7-18); CALCIUM 8.7 MG/DL (8.5-10.1); CHLORIDE 106 MEQ/L (98-107); CREATININE 0.75 MG/DL (0.50-1.00); GLOMERULAR FILTRATION RATE 93 ML/MIN (>89); GLUCOSE,RANDOM 85 MG/DL (74-106); SODIUM (NA) 142 MEQ/L (136-145)
[2018-02-15] MEDS ORDERED: clonazePAM 1 MG TAB PO ONE (04:45)
[2018-02-15 04:51] LABS: ALKALINE PHOSPHATASE 67 U/L (45-117); TOTAL BILIRUBIN ADULT 0.5 MG/DL (0.2-1.0); TOTAL PROTEIN 8.6 GM/DL (6.4-8.2)
[2018-02-15 04:56] LABS: ACETAMINOPHEN LESS THAN 2.0 MCG/ML (10.0-30.0)
[2018-02-15] MEDS ORDERED: POTASSIUM CHLORIDE 10 MEQ CONTROLLED RELEASE TAB PO ONE (05:00)
[2018-02-15 09:58] LABS: BACTERIA, URINE RARE /hpf; BILIRUBIN, URINE NEG (NEG); BLOOD, URINE NEG (NEG); GLUCOSE,URINE NEG (NEG); KETONE, URINE TRACE mg/dL (NEG); MUCUS URINE FEW /lpf (OCC); NITRITE,URINE NEG (NEG); PH, URINE 5.5 (5.0-8.5); RENAL EPITHELIAL CELLS <1 /hpf; SQUAMOUS EPITHELIAL CELL URINE 1 /hpf (0-5); URINE COLOR YELLOW (YELLW/STRAW); URINE LEUKOCYTE ESTERASE NEG (NEG)
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
--- NOTE | 2018-02-15 14:10 | PD ---
Physical Exam Date Seen by Provider: February 15, 2018 Narrative 27y female presents to the ED as a Hurd act with an intent to hurt herself. Cleared for psych eval. Psych cleared pt to follow up as an outpatient. Patient agrees to follow-up as discussed. She denies any suicidal or homicidal ideations at this time. Data Data Last Documented VS Vital Signs Date Time Temp Pulse Resp B/P (MAP) Pulse Ox O2 Delivery O2 Flow Rate FiO2 02/15/18 03:48 97.7 98 16 128/90 (103) 99 Room Air Orders Orders Complete Blood Count With Diff (02/15/18 03:52) Comprehensive Metabolic Panel (02/15/18 03:52) Thyroid Stimulating Hormone (02/15/18 03:52) Urinalysis - C+S If Indicated (02/15/18 03:52) Psych Screen (02/15/18 03:52) Drug Screen, Random Urine (02/15/18 03:52) Alcohol (Ethanol) (02/15/18 03:52) Salicylates (Aspirin) (02/15/18 03:52) Tylenol (Acetaminophen) (02/15/18 03:52) Clonazepam (Klonopin) (02/15/18 04:45) Potassium Chloride (Kcl) (02/15/18 05:00) Diet Regular Basic (02/15/18 Breakfast) Ed Urine Pregnancytest Poc (02/15/18 09:25) Diet Regular Basic (02/15/18 Lunch) Ed Discharge Order (02/15/18 14:10) Labs Laboratory Tests Test 02/15/18 04:05 02/15/18 09:30 White Blood Count 5.7 TH/MM3 Red Blood Count 4.71 MIL/MM3 Hemoglobin 12.9 GM/DL Hematocrit 38.0 % Mean Corpuscular Volume 80.8 FL Mean Corpuscular Hemoglobin 27.4 PG Mean Corpuscular Hemoglobin Concent 33.9 % Red Cell Distribution Width 14.2 % Platelet Count 291 TH/MM3 Mean Platelet Volume 8.0 FL Neutrophils (%) (Auto) 38.2 % Lymphocytes (%) (Auto) 47.7 % Monocytes (%) (Auto) 11.0 % Eosinophils (%) (Auto) 2.6 % Basophils (%) (Auto) 0.5 % Neutrophils # (Auto) 2.2 TH/MM3 Lymphocytes # (Auto) 2.7 TH/MM3 Monocytes # (Auto) 0.6 TH/MM3 Eosinophils # (Auto) 0.1 TH/MM3 Basophils # (Auto) 0.0 TH/MM3 CBC Comment DIFF FINAL Differential Comment Blood Urea Nitrogen 5 MG/DL Creatinine 0.75 MG/DL Random Glucose 85 MG/DL Total Protein 8.6 GM/DL Albumin 4.3 GM/DL Calcium Level 8.7 MG/DL Alkaline Phosphatase 67 U/L Aspartate Amino Transf (AST/SGOT) 39 U/L Alanine Aminotransferase (ALT/SGPT) 51 U/L Total Bilirubin 0.5 MG/DL Sodium Level 142 MEQ/L Potassium Level 3.4 MEQ/L Chloride Level 106 MEQ/L Carbon Dioxide Level 25.0 MEQ/L Anion Gap 11 MEQ/L Estimat Glomerular Filtration Rate 93 ML/MIN Thyroid Stimulating Hormone 3rd Gen 0.962 uIU/ML Salicylates Level 4.5 MG/DL Acetaminophen Level LESS THAN 2.0 MCG/ML Ethyl Alcohol Level 129 MG/DL Urine Color YELLOW Urine Turbidity CLEAR Urine pH 5.5 Urine Specific [place] 1.010 Urine Protein NEG mg/dL Urine Glucose (UA) NEG mg/dL Urine Ketones TRACE mg/dL Urine Occult Blood NEG Urine Nitrite NEG Urine Bilirubin NEG Urine Urobilinogen LESS THAN 2.0 MG/DL Urine Leukocyte Esterase NEG Urine RBC 1 /hpf Urine WBC 1 /hpf Urine Squamous Epithelial Cells 1 /hpf Urine Renal Epithelial Cells <1 /hpf Urine Bacteria RARE /hpf Urine Mucus FEW /lpf Microscopic Urinalysis Comment CULT NOT INDICATED Urine Opiates Screen NEG Urine Barbiturates Screen NEG Urine Amphetamines Screen NEG Urine Benzodiazepines Screen NEG Urine Cocaine Screen NEG Urine Cannabinoids Screen POS [facility] Supervised Visit with TOMMY: No Diagnosis Primary Impression: Medical clearance for psychiatric admission Additional Impressions: Alcohol intoxication Qualified Codes: F10.920 - Alcohol use, unspecified with intoxication, uncomplicated Adjustment disorder Qualified Codes: 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
== END 2018-02-15 15:20 | disposition home or self-care (01) ==
LOC: NEPD 03:36 → NEPJ 15:20
DX: F10.920 Alcohol use, unspecified with intoxication, uncomplicated (principal); F43.23 Adjustment disorder with mixed anxiety and depressed mood; F11.10 Opioid abuse, uncomplicated; Y90.6 Blood alcohol level of 120-199 mg/100 ml
CPT/HCPCS: 80053; 80307; 81001; 84443; 84703; 85025; 99284